=== PATIENT | female | born 1945 | race Caucasian/White ===

== ENCOUNTER 2018-07-05 11:00 | Inpatient (IN) | payer OTHER ==
[~2018-07-05] VITALS: Ht 152.4 cm; Wt 66.7 kg
[~2018-07-05 11:00] MED LIST: ATOR40TA21 PO; FERR325C PO; GLIP10TA14 PO; HYDR25TA6 PO; LISI40TA3 PO; METF100010 PO
[2018-07-26] VITALS (23 sets, daily range): BP systolic 71–139; BP diastolic 39–73; PULSE 62–91; RESP 16–20; Ht 152.4 cm; Wt 66.7 kg
[2018-07-26] MEDS ORDERED: SEVOFLURANE 15 MIN ONE (07:00)
[2018-07-26] MEDS ORDERED: PHENYLephrine (100 MCG/ML) 10ML SYG ONE (07:00)
[2018-07-26] MEDS ORDERED: METF100010 PO (08:31)
[2018-07-26] MEDS ORDERED: GLIP10TA14 PO (08:31)
[2018-07-26] MEDS ORDERED: LISI40TA3 PO (08:32)
[2018-07-26] MEDS ORDERED: HYDR25TA6 PO (08:32)
[2018-07-26] MEDS ORDERED: ATOR40TA68 PO (08:32)
[2018-07-26] MEDS ORDERED: DULO60CA6 PO (08:33)
[2018-07-26] MEDS ORDERED: GABA300C16 PO (08:33)
[2018-07-26] MEDS ORDERED: SITA100T11 PO (08:34)
--- NOTE | 2018-07-26 11:06 | HPN ---
Date/Time of Note Date/Time of Note DATE: 07/26/18 TIME: 11:06 Interval H&P Admission Note Pt. seen H&P reviewed: No system changes RIVAS CUNNINGHAM MD July 26, 2018 11:06
[2018-07-26] MEDS ORDERED: THROMBIN 5000 UNIT VIAL ONE (11:08)
[2018-07-26] MEDS ORDERED: POLYMYXIN/BACITRACIN 1L IRRIG ONE ×2 (11:08→11:34)
[2018-07-26] MEDS ORDERED: GELATIN SIZE 100 SPONGE ONE (11:08)
[2018-07-26] MEDS ORDERED: BUPIVACAINE 0.25%/EPI (SDV) 30 ML INJ ONE (11:08)
--- NOTE | 2018-07-26 11:34 | PREAC ---
Date/Time of Note Date/Time of Note DATE: 07/26/18 TIME: 11:32 Anesthesia Eval and Record Evaluation Time Pre-Procedure Interview DATE: 07/26/18 TIME: 11:32 Age 73 Sex female NPO: 8 hrs Preoperative diagnosis L3/4, L4/5 LUMBAR DISC DISEASE Planned procedure L3/4, L4/5 Past Medical History Past Medical History: None Cardio: HTN, Dyslipidemia Endo: Hypothyroid Surgery & Anesthesia Issues No known issue Meds Anticoagulation: No Beta Jt within 24 hr: No Reason Beta Jt not given: Pt. not on B-Jt Reported Medications Sitagliptin* (Januvia*) 100 Mg Tablet, 100 MG PO DAILY, #30 TAB 07/26/18 Gabapentin* (Gabapentin*) 300 Mg Capsule, 300 MG PO QHS PRN for PAIN, #60 CAP 07/26/18 Duloxetine Hcl* (Cymbalta*) 60 Mg Capsule.dr, 60 MG PO DAILY, CAP 07/26/18 Hydrochlorothiazide* (Hydrochlorothiazide*) 25 Mg Tab, 25 MG PO DAILY, #30 TAB 07/26/18 Atorvastatin* (Atorvastatin*) 40 Mg Tablet, 40 MG PO QHS, #30 TAB 07/26/18 Lisinopril* (Lisinopril*) 40 Mg Tablet, 40 MG PO DAILY, #30 TAB 07/26/18 Metformin Hcl* (Metformin Hcl*) 1,000 Mg Tablet, 1000 MG PO WITH BREAKFAST DINNE, #60 TAB 07/26/18 Glipizide* (Glipizide*) 10 Mg Tablet, 10 MG PO BID, TAB 07/26/18 Discontinued Reported Medications Ferrous Sulfate (Iron) 325 Mg Capsr, PO DAILY 07/01/12 Hydrochlorothiazide (Hydrochlorothiazide) 25 Mg Tablet, PO DAILY 07/01/12 Atorvastatin (Lipitor) 40 Mg Tablet, PO DAILY 07/01/12 Lisinopril* (Lisinopril*) 40 Mg Tablet, PO DAILY 07/01/12 Metformin Hcl* (Metformin Hcl*) 1,000 Mg Tablet, PO BID 07/01/12 Glipizide* (Glipizide*) 10 Mg Tablet, PO BID 07/01/12 Meds reviewed: Yes Allergies Coded Allergies: No Known Allergy (Unverified , 07/26/18) Allergies Reviewed: Yes Labs/Studies Labs Reviewed: Reviewed by anesthesiologist Blood Bank Test 07/26/18 09:03 Antibody Screen NEGATIVE Blood Type A POSITIVE test: N/A Pre-procedure Exam Last vitals Vital Signs Date Temp Pulse Resp B/P (MAP) Pulse Ox O2 O2 Flow FiO2 Time Delivery Rate 07/26/18 97.3 80 16 139/68 96 Room Air 09:15 (91) Airway: Adequate mouth opening Mallampati: Mallampati III Teeth: Normal Lung: Normal Heart: Normal ASA Physical Status ASA physical status: 3 Emergency: None Planned Anesthetic General/MAC: ETT Pre-operative Attestations Prior to commencing anesthesia and surgery, the patient was re-evaluated, there was verification of: *The patient's identity *The results of appropriate recent lab work and preoperative vital signs *The above evaluation not changing prior to induction *Anesthetic plan, risk benefits, alternative and complications discussed with patient/family; questions answered; patient/family understands, accepts and wishes to proceed. CHON SANDOVAL MD July 26, 2018 11:34
[2018-07-26] MEDS ORDERED: PROPOFOL 100 ML ONE (11:54)
[2018-07-26] MEDS ORDERED: LIDOCAINE 100 MG SYRINGE ONE (11:54)
[2018-07-26] MEDS ORDERED: PROPOFOL 20 ML ONE (11:54)
[2018-07-26] MEDS ORDERED: CEFAZOLIN 1 GM INJ ONE (11:54)
[2018-07-26] MEDS ORDERED: MIDAZOLAM 1 MG/ML 2 ML INJ ONE ×2 (11:55→14:21)
[2018-07-26] MEDS ORDERED: ROCURONIUM 50 MG INJ ONE (12:37)
[2018-07-26] MEDS ORDERED: SUCCINYLCHOLINE CHLORIDE 100 MG/5 ML SYG IV ONE (12:37)
[2018-07-26] MEDS ORDERED: DEXAMETHASONE 4 MG/ML 5 ML INJ ONE (12:37)
[2018-07-26] MEDS ORDERED: ONDANSETRON 4 MG INJ ONE (12:37)
[2018-07-26] MEDS ORDERED: HEMOSTATIC MATRIX/ THROMBIN 1 EA SYG ZFS ONE ×2 (12:43)
[2018-07-26] MEDS ORDERED: KETOROLAC 15 MG INJ IV PRN (13:00)
[2018-07-26] MEDS ORDERED: MEPERIDINE 25 MG INJ IV PRN (13:00)
[2018-07-26] MEDS ORDERED: LABETALOL HCL 20MG INJ IV PRN (13:00)
[2018-07-26] MEDS ORDERED: ONDANSETRON 4 MG INJ IV PRN ×2 (13:00→15:30)
[2018-07-26] MEDS ORDERED: HYDROmorphONE 1 MG/5 ML IV SYRINGE IV PRN ×3 (13:00)
[2018-07-26] MEDS ORDERED: hydrALAzine 20 MG INJ IV PRN (13:00)
[2018-07-26] MEDS ORDERED: DIPHENHYDRAMINE 50 MG INJ IV PRN (13:00)
--- NOTE | 2018-07-26 15:14 | OPR ---
Date/Time of Note Date/Time of Note DATE: 07/26/18 TIME: 15:08 Operative Report Free Text/Dictation DATE OF OPERATION: 07/26/2018 PREOPERATIVE DIAGNOSES: 1. L4-5 severe spinal stenosis with neurogenic claudication 2. L3-4 severe spinal stenosis with neurogenic claudication 3. 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 L4-5 severe spinal stenosis with neurogenic claudication 2. L3-4 severe spinal stenosis with neurogenic claudication 3. 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 L4-5 bilateral laminectomy, medial facetectomy, and foraminotomy 2. L3-4 bilateral laminectomy, medial facetectomy, and foraminotomy 3. L3-4 microdiskectomy 4. Interpretation of neuromonitoring SURGEON: Rivas Cunningham MD BRIM STITCHER: SANTIAGO Spaulding ANESTHESIA: General endotracheal ESTIMATED BLOOD LOSS: 200 mL SURGICAL INDICATION: The patient is a 73 year-old female who presents with a chronic increasing of bilateral extremity pain and numbness that is worst with ambulation. The patient was unable to ambulate significant distances secondary to their pain. Ossian's symptoms failed to improve with a conservative course of treatment. . Risks, benefits, and alternatives to a decompressive procedure including but not exclusive of risks of bleeding, infection, nerve injury, cauda equina syndrome, iatrogenic instability requiring future fusion, dural tear, myocardial infarction, stroke, pulmonary embolism were explained to the patient, and she wished to proceed. DESCRIPTION OF TECHNIQUE: The patient was identified in the preoperative area and taken to the operating room. Rapid induction of general endotracheal anesthesia was performed. Patient was given 2 g of cefazolin for prophylaxis. The patient was then placed in the prone position on the Azam table on top of a Nasir frame with all bony prominences well padded. The back was prepped and draped in usual sterile manner. Using a spinal needle and intraoperative fluoroscopy, the L4-5 level was clearly identified. The skin was injected using 0.25% marcaine with epinephrine. Longitudinal midline incision was then created using a 10 blade. Further dissection through soft tissue was performed using electrocautery down to the spinous processes bilaterally. Dissection was taken down the bilateral lamina and over the facet joint capsule. A self-retaining retractor was applied. Again, intraoperative fluoroscopy confirmed the level. A rongeur was used to remove a portion of the L4 spinous process and the interspinous ligaments. We identified the interlaminar window. The microscope was brought into use for microdissection. The high-speed bur was used to thin the L4 lamina. Kerrison rongeurs were then used to resect a the lamina, and a portion of the medial facet and the bone overlying the foramen. Ligamentum flavum was also resected using the Kerrison rongeurs. Care was taken to protect the thecal sac throughout the decompressive procedure. Palpation with a ball-tip probe did not reveal any further stenosis in the central, subarticular, or foraminal areas. The bilateral L5 and L4 pedicles were palpated using a joe to ensure a pedicle to pedicle decompression. The exiting L4 nerve root and traversing L5 nerve roots were both directly visualized and noted to be decompressed. The cephalad and caudad extent of the decompression were als o confirmed using ball-tip probes and intraoperative fluoroscopy. We then focused on the L3-4 level. The L3-4 level was clearly identified using fluoroscopy. The skin was injected using 0.25% marcaine with epinephrine. Longitudinal midline incision was extended proximally using a 10 blade. Further dissection through soft tissue was performed using electrocautery down to the spinous processes bilaterally. Dissection was taken down the bilateral lamina and over the facet joint capsule. A self-retaining retractor was applied. Again, intraoperative fluoroscopy confirmed the level. A rongeur was used to remove a portion of the L3 spinous process and the interspinous ligaments. We identified the interlaminar window. The microscope was brought into use for microdissection. The high-speed bur was used to thin the L3 lamina. Kerrison rongeurs were then used to resect a the lamina, and a portion of the medial facet and the bone overlying the foramen. Ligamentum flavum was also resected using the Kerrison rongeurs. Care was taken to protect the thecal sac throughout the decompressive procedure. The dural was then retracted medially from the left. The extruded central fragment was noted. An annulotomy was performed using a 15 blade. The extruded fragment was removed using a series or nerve hooks, pituitaries and currettes. The disk was taken down to a stable base. No further disk fragments were noted. Palpation with a ball-tip probe did not reveal any further stenosis in the central, subarticular, or foraminal areas. The bilateral L3 and L4 pedicles were palpated using a joe to ensure a pedicle to pedicle decompression. The exiting L3 nerve root and traversing L4 nerve roots were both directly visualized and noted to be decompressed. The cephalad and caudad extent of the decompression were also confirmed using ball-tip probes and intraoperative fluoroscopy. The wound was irrigated copiously using normal saline. Meticulous attention was paid toward hemostasis using bipolar cautery, FloSeal and thrombin. Care was taken to remove all FloSeal prior to wound closure. The fascia was then closed using 0 Vicryl in interrupted fashion over a medium hemovac. Subcutaneous tissue was closed using 2-0 Vicryl in interrupted fashion. Skin was closed using a running 4-0 Monocryl stitch. The wound was dressed using Dermabond, sterile gauze and Tegaderm. The patient was returned to the supine position. They were extubated immediately postoperatively and taken to the recovery room in stable condition. COMPLICATIONS: None. Procedure Date: July 26, 2018 Preoperative Diagnosis 1. L4-5 severe spinal stenosis with neurogenic claudication 2. L3-4 severe spinal stenosis with neurogenic claudication 3. 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 L4-5 severe spinal stenosis with neurogenic claudication 2. L3-4 severe spinal stenosis with neurogenic claudication 3. 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 L4-5 bilateral laminectomy, medial facetectomy, and foraminotomy 2. L3-4 bilateral laminectomy, medial facetectomy, and foraminotomy 3. L3-4 microdiskectomy 4. Interpretation of neuromonitoring Surgeon see signature line Data Sme SANTIAGO Spaulding Anesthesia Type: general Estimated Blood Loss: 150 - 200 ml's Transfusion none Specimen L3-4 disk Grafts/Implants none Complications none Pt Condition Post Procedure: stable Disposition: PACU Procedure Description DESCRIPTION OF TECHNIQUE: The patient was identified in the preoperative area and taken to the operating room. Rapid induction of general endotracheal anesthesia was performed. Patient was given 2 g of cefazolin for prophylaxis. The patient was then placed in the prone position on the Azam table on top of a Nasir frame with all bony prominences well padded. The back was prepped and draped in usual sterile manner. Using a spinal needle and intraoperative fluoroscopy, the L4-5 level was clearly identified. The skin was injected using 0.25% marcaine with epinephrine. Longitudinal midline incision was then created using a 10 blade. Further dissection through soft tissue was performed using electrocautery down to the spinous processes bilaterally. Dissection was taken down the bilateral lamina and over the facet joint capsule. A self-retaining retractor was applied. Again, intraoperative fluoroscopy confirmed the level. A rongeur was used to remove a portion of the L4 spinous process and the interspinous ligaments. We identified the interlaminar window. The microscope was brought into use for microdissection. The high-speed bur was used to thin the L4 lamina. Kerrison rongeurs were then used to resect a the lamina, and a portion of the medial facet and the bone overlying the foramen. Ligamentum flavum was also resected using the Kerrison rongeurs. Care was taken to protect the thecal sac throughout the decompressive procedure. Palpation with a ball-tip probe did not reveal any further stenosis in the central, subarticular, or foraminal areas. The bilateral L5 and L4 pedicles were palpated using a joe to ensure a pedicle to pedicle decompression. The exiting L4 nerve root and traversing L5 nerve roots were both directly visualized and noted to be decompressed. The cephalad and caudad extent of the decompression were also confirmed using ball-tip probes and intraoperative fluoroscopy. We then focused on the L3-4 level. The L3-4 level was clearly identified using fluoroscopy. The skin was injected using 0.25% marcaine with epinephrine. Longitudinal midline incision was extended proximally using a 10 blade. Further dissection through soft tissue was performed using electrocautery down to the s pinous processes bilaterally. Dissection was taken down the bilateral lamina and over the facet joint capsule. A self-retaining retractor was applied. Again, intraoperative fluoroscopy confirmed the level. A rongeur was used to remove a portion of the L3 spinous process and the interspinous ligaments. We identified the interlaminar window. The microscope was brought into use for microdissection. The high-speed bur was used to thin the L3 lamina. Kerrison rongeurs were then used to resect a the lamina, and a portion of the medial facet and the bone overlying the foramen. Ligamentum flavum was also resected using the Kerrison rongeurs. Care was taken to protect the thecal sac throughout the decompressive procedure. The dural was then retracted medially from the left. The extruded central fragment was noted. An annulotomy was performed using a 15 blade. The extruded fragment was removed using a series or nerve hooks, pituitaries and currettes. The disk was taken down to a stable base. No further disk fragments were noted. Palpation with a ball-tip probe did not reveal any further stenosis in the central, subarticular, or foraminal areas. The bilateral L3 and L4 pedicles were palpated using a joe to ensure a pedicle to pedicle decompression. The exiting L3 nerve root and traversing L4 nerve roots were both directly visualized and noted to be decompressed. The cephalad and caudad extent of the decompression were also confirmed using ball-tip probes and intraoperative fluoroscopy. The wound was irrigated copiously using normal saline. Meticulous attention was paid toward hemostasis using bipolar cautery, FloSeal and thrombin. Care was t aken to remove all FloSeal prior to wound closure. The fascia was then closed using 0 Vicryl in interrupted fashion over a medium hemovac. Subcutaneous tissue was closed using 2-0 Vicryl in interrupted fashion. Skin was closed using a running 4-0 Monocryl stitch. The wound was dressed using Dermabond, sterile gauze and Tegaderm. The patient was returned to the supine position. They were extubated immediately postoperatively and taken to the recovery room in stable condition. COMPLICATIONS: None. RIVAS CUNNINGHAM MD July 26, 2018 15:14
[2018-07-26] MEDS ORDERED: EPHEDrine 25 MG/5 ML SYG ONE (15:30)
[2018-07-26] MEDS ORDERED: AL HYDROX/MG HYDROX/SIMETH 30 ML CUP PO PRN (15:30)
[2018-07-26] MEDS ORDERED: ACETAMINOPHEN 325 MG TAB PO PRN (15:30)
[2018-07-26] MEDS ORDERED: NACL 0.9% 3 ML SYG IV SCH (15:30)
[2018-07-26] MEDS ORDERED: HYDROmorphONE 0.2 MG/ML PCA IV SCH (15:30)
[2018-07-26] MEDS ORDERED: NALOXONE (0.4 MG/ML) INJ IV PRN (15:30)
[2018-07-26] MEDS ORDERED: PROCHLORPERAZINE 10 MG TAB PO PRN (15:30)
[2018-07-26] MEDS: EPHEDrine 25 MG/5 ML SYG IV PRN ×2 (15:42→16:27)
--- NOTE | 2018-07-26 15:47 | PAC ---
Date/Time of Note Date/Time of Note DATE: 07/26/18 TIME: 15:47 Post-Anesthesia Notes Post-Anesthesia Note Last documented vital signs Vital Signs Date Temp Pulse Resp B/P (MAP) Pulse Ox O2 O2 Flow FiO2 Time Delivery Rate 07/26/18 98.5 15:28 07/26/18 80 16 139/68 96 Room Air 09:15 (91) Activity: WNL Respiratory function: WNL Cardiovascular function: WNL Mental status: Baseline Pain reasonably controlled: Yes Hydration appropriate: Yes Nausea/Vomiting absent: Yes CHON SANDOVAL MD July 26, 2018 15:47
[2018-07-26] MEDS ORDERED: ALBUMIN HUMAN 5% 250 ML ONE (16:21)
[2018-07-26] MEDS ORDERED: ALBUMIN HUMAN 5% 250 ML IV STA (16:25)
[2018-07-26] MEDS ORDERED: HYDROmorphONE 0.5 MG/0.5 ML SYG IV PRN (16:30)
[2018-07-26] MEDS: HYDROCODONE/APAP (5/325) TAB PO PRN (16:37)
[2018-07-26] MEDS ORDERED: GABAPENTIN 300 MG CAP PO PRN (17:00)
[2018-07-26] MEDS: SOD CHLORIDE 0.9% 1,000 ML IV SCH ×2 (17:00→21:03)
--- NOTE | 2018-07-26 17:09 | CONS ---
DATE OF ADMISSION: 07/26/2018 DATE OF CONSULTATION: 07/26/2018 TYPE OF CONSULTATION: Postoperative medical. Thank you very much for allowing me to evaluate the above patient, a 73-year-old female who just unde rwent lumbar back surgery. HISTORICAL EVENTS: As you are well aware, the above patient was evaluated in your office on 05/04/19 19 when she presented with a 6 to 7-month history of low back pain and related right lower extremity pain. Anti-inflammatories provided no significant relief and it was felt that surgical intervention beneficial. After transferred from the surgical suite to recovery, her blood pressure was noted to b e 70. She was given saline bolus and plasma with her pressure now hovering at 98 systolic. She annette es any substernal chest pressure, cough, wheezing, nausea, vomiting, abdominal pain. Has moderate ba ck pain. PAST MEDICAL HISTORY: Includes: 1. Diabetes. 2. History of hypertension. 3. History of brain surgery. 4. History of depression. 5. Macular degeneration. 6. History of benign positional vertigo. 7. History of hypothyroid. FAMILY HISTORY: Noncontributory. SOCIAL HISTORY: She does not drink. She does not smoke. ALLERGIES: NONE. MEDICATIONS PRIOR TO ADMISSION: Include: 1. Amlodipine 10 mg per day. 2. Atorvastatin 40 mg per day. 3. Cymbalta 60 mg per day. 4. Glipizide 10 mg per day. 5. Hydrochlorothiazide 25 mg per day. 6. Januvia 100 mg per day. 7. Lisinopril 40 mg per day. 8. Metformin 1000 mg b.i.d. 9. Neurontin 300 mg at night. 10. Wellbutrin 300 mg daily. PHYSICAL EXAMINATION: VITAL SIGNS: BP 102/76, pulse 80, respirations were 18. She was afebrile. HEENT: Eyes: Extraocular muscles were full. Nose, mouth and throat were normal. NECK: Supple. There was no jugular venous distention, thyroid enlargement or adenopathy. LUNGS: Clear. HEART: Rhythm regular. No murmur. No third or fourth sound. ABDOMEN: Nontender. Liver and spleen were not palpable. No mass or tenderness were noted. EXTREMITIES: No edema, no calf tenderness. NEUROLOGIC: No lateralizing motor weakness. IMPRESSION: 1. Perioperative hypotension probably secondary to pain meds and extracellular fluid losses, now imp roving with volume repletion. 2. History of hypertension. We will hold blood pressure meds for now. 3. Diabetes. We will resume oral diabetic meds and cover sugars with short-acting insulin before me als. 4. We will follow daily for signs and symptoms of thromboembolic disease. Dictated By: JANNIE GRAY MD MR/NTS Conf#: [id number] DID#: [id number] CC: RIVAS CUNNINGHAM MD;*EndCC*
[2018-07-26] MEDS ORDERED: GLUCAGON 1 MG INJ IM PRN (17:30)
[2018-07-26] MEDS: INSULIN ASPART [NOVOLOG] 3 ML PEN SC SCH (17:30)
[2018-07-26] MEDS ORDERED: GLUCOSE GEL 15 GRAM TUBE PO PRN ×2 (17:30)
[2018-07-26] MEDS: CEFAZOLIN 1 GM/50 ML (PMX) 50 ML IVPB SCH (17:30)
[2018-07-26] MEDS ORDERED: DEXTROSE 50% 50 ML SYRINGE IV PRN ×2 (17:30)
[2018-07-26] MEDS ORDERED: GLUCOSE GEL 15 GRAM TUBE BUCCAL PRN (17:30)
[2018-07-26] MEDS: metFORMIN 500 MG TAB PO SCH (17:55)
[2018-07-26] MEDS: ATORVASTATIN 40 MG TAB PO SCH (21:03)
[2018-07-27 00:25] VITALS: BP 113/59; PULSE 88; RESP 18
[2018-07-27] MEDS: CEFAZOLIN 1 GM/50 ML (PMX) 50 ML IVPB SCH ×3 (00:35→14:03)
[2018-07-27] MEDS: ACCU-CHEK XX SCH (01:52)
[2018-07-27 04:00] VITALS: BP 117/66; PULSE 76; RESP 18
[2018-07-27] MEDS: INSULIN ASPART [NOVOLOG] 3 ML PEN SC SCH ×3 (07:20→17:47)
[2018-07-27 08:11] VITALS: BP 116/55; RESP 18
[2018-07-27] MEDS: HYDROCODONE/APAP (5/325) TAB PO PRN ×4 (08:13→22:06)
[2018-07-27] MEDS: SOD CHLORIDE 0.9% 1,000 ML IV SCH (08:14)
--- NOTE | 2018-07-27 08:38 | CONS ---
Assessment/Plan Assessment/Plan Assessment/Plan (Daily) 1. Doing well psot op lumbar back surgery 2. Anemia, noted 3. CHO control acceptable 4. BP controlled, hypotension resolved with vol expansion Consultation Date/Type/Reason Admit Date/Time July 26, 2018 at 07:44 Initial Consult Date Date/Time of Note DATE: 07/27/18 TIME: 08:36 Detailed Summary Respiratory: No cough, No shortness of breath Cardiovascular: No chest pain, No palpitations Gastrointestinal: no complaints Genitourinary: other (lin in place) Musculoskeletal: back pain (moderate) Neurologic: No headache Exam/Review of Systems Exam Vitals Vital Signs Date Temp Pulse Resp B/P (MAP) Pulse Ox O2 O2 Flow FiO2 Time Delivery Rate 07/27/18 98.3 18 116/55 100 Nasal 08:11 (75) Cannula 07/27/18 76 04:00 07/26/18 2.0 20:15 Intake and Output 07/26/18 07/26/18 07/27/18 1515:00 23:00 07:00 IntakeIntake Total 1300 ml 50 ml 800 ml OutputOutput Total 400 ml 200 ml 110 ml BalanceBalance 900 ml -150 ml 690 ml Neck: No jvd Respiratory: clear to auscultation Cardiovascular: regular rate and rhythm Gastrointestinal: soft Extremities: No edema, No tenderness Results Result Diagram: 07/27/18 0434 07/27/18 0434 Results 24hrs Laboratory Tests Test 07/26/18 09:10 07/26/18 16:48 07/26/18 18:21 07/26/18 20:36 Bedside Glucose 126 186 Hemoglobin 10.1 L 9.3 L Hematocrit 31.6 L 28.7 L White Blood Count 12.0 H Red Blood Count 3.47 L Mean Corpuscular 82.7 Volume Mean Corpuscular 26.8 L Hemoglobin Mean Corpuscular 32.4 Hemoglobin Concent Red Cell 12.8 Distribution Width Platelet Count 206 Mean Platelet 10.5 H Volume Immature 0.300 Granulocytes % Neutrophils % 92.6 H Lymphocytes % 4.6 L Monocytes % 2.4 Eosinophils % 0.0 Basophils % 0.1 Nucleated Red 0.0 Blood Cells % Immature 0.040 H Granulocytes # Neutrophils # 11.2 H Lymphocytes # 0.6 L Monocytes # 0.3 Eosinophils # 0.0 Basophils # 0.0 Nucleated Red 0.0 Blood Cells # Test 07/27/18 04:34 07/27/18 08:21 07/27/18 08:23 Hemoglobin 8.9 L Hematocrit 27.5 L Sodium Level 138 Potassium Level 4.1 Chloride Level 103 Carbon Dioxide 27 Level Anion Gap 8 Blood Urea 17 Nitrogen Creatinine 0.74 Est Glomerular Filtrat Rate mL/min Glucose Level 141 Calcium Level 8.7 Phosphorus Level 5.4 H Magnesium Level 1.4 L Bedside Glucose 125 Lab Scanned Report REFERENCE LAB Medications Medication Current Medications Acetaminophen/ Hydrocodone Bitart ([place] (5/325)) 1 tab Q4H PRN PO .PAIN 1-5 Last administered on 07/27/18at 08:13; Admin Dose 1 TAB; Start 07/26/18 at 15:30 Acetaminophen/ Hydrocodone Bitart ([place] (5/325)) 2 tab Q4H PRN PO .PAIN 6-10 Last administered on 07/26/18at 16:37; Admin Dose 2 TAB; Start 07/26/18 at 15:30 Cefazolin Sodium 50 ml @ 100 mls/hr Q6 IVPB Last administered on 07/27/18at 05:41; Admin Dose 100 MLS/HR; Start 07/26/18 at 18:00; Stop 07/27/18 at 12:29 Prochlorperazine (Compazine) 10 mg Q4H PRN PO NAUSEA/VOMITING; Start 07/26/18 at 15:30 Ondansetron HCl (Zofran Inj) 4 mg Q6H PRN IV NAUSEA/VOMITING; Start 07/26/18 at 15:30 Al Hydrox/Mg Hydrox/Simethicone (Mag-Al Plus) 15 ml Q4H PRN PO .CONSTIPATION; Start 07/26/18 at 15:30 Docusate Sodium (Colace) 100 mg BID PO ; Start 07/27/18 at 09:00 Acetaminophen (Tylenol Tab) 650 mg Q4H PRN PO TEMP GREATER THAN 101F OR AGOSTO; Start 07/26/18 at 15:30 IV Flush (NS 3 ml) 3 ml PER PROTOCOL IV ; Start 07/26/18 at 15:30 Naloxone HCl (Narcan) 0.2 mg Q2M PRN IV RR 8 BREATHS/MIN OR LESS; Start 07/26/18 at 15:30 Hydromorphone HCl (Dilaudid) 0.5 mg Q4H PRN IV SEVERE PAIN LEVEL 7-10; Start 07/26/18 at 16:30 Sodium Chloride 1,000 ml @ 100 mls/hr Q10H IV Last administered on 07/27/18at 08:14; Admin Dose 100 MLS/HR; Start 07/26/18 at 17:00 Atorvastatin Calcium (Lipitor) 40 mg QHS PO Last administered on 07/26/18at 21:03; Admin Dose 40 MG; Start 07/26/18 at 21:00 Duloxetine HCl (Cymbalta) 60 mg DAILY PO ; Start 07/27/18 at 09:00 Gabapentin (Neurontin) 300 mg QHS PRN PO PAIN; Start 07/26/18 at 17:00 Lisinopril (Zestril) 40 mg DAILY PO ; Start 07/27/18 at 09:00 Metformin HCl (Glucophage) 1,000 mg WITH BREAKFAST DINNE PO ; Start 07/26/18 at 17:55 Linagliptin (Tradjenta) 5 mg DAILY PO ; Start 07/27/18 at 09:00 Diagnostic Test (Pha) (Accu-Chek) 1 ea 02 XX ; Start 07/27/18 at 02:00 Insulin Aspart (Novolog Insulin Pen) NOVOLOG *MILD* ALGORITHM AC MEALS SC ; Start 07/26/18 at 17:30 Miscellaneous Information 1 ea NOTE XX ; Start 07/26/18 at 17:30 Glucose (Glutose) 15 gm Q15M PRN PO DECREASED GLUCOSE; Start 07/26/18 at 17:30 Glucose (Glutose) 22.5 gm Q15M PRN PO DECREASED GLUCOSE; Start 07/26/18 at 17:30 Dextrose (D50w Syringe) 25 ml Q15M PRN IV DECREASED GLUCOSE; Start 07/26/18 at 17:30 Dextrose (D50w Syringe) 50 ml Q15M PRN IV DECREASED GLUCOSE; Start 07/26/18 at 17:30 Glucagon (Glucagen) 1 mg Q15M PRN IM DECREASED GLUCOSE; Start 07/26/18 at 17:30 Glucose (Glutose) 15 gm Q15M PRN BUCCAL DECREASED GLUCOSE; Start 07/26/18 at 17:30 JANNIE GRAY MD July 27, 2018 08:38
[2018-07-27] MEDS: LINAGLIPTIN 5 MG TABLET PO SCH (09:20)
[2018-07-27] MEDS: DOCUSATE SODIUM 100 MG CAP PO SCH ×2 (09:20→20:56)
[2018-07-27] MEDS: DULOXETINE 30 MG CAP DR PO SCH (09:20)
[2018-07-27] MEDS: LISINOPRIL 20 MG TAB PO SCH (09:21)
[2018-07-27] MEDS: metFORMIN 500 MG TAB PO SCH ×2 (09:25→17:44)
[2018-07-27] MEDS ORDERED: MAGNESIUM SULFATE 3 GM in DEXTROSE 5% 100 ML IVPB ONE (10:00)
--- NOTE | 2018-07-27 12:58 | CONS ---
Consultation Date/Type/Reason Admit Date/Time July 26, 2018 at 07:44 Initial Consult Date Date/Time of Note DATE: 07/27/18 TIME: 12:55 24 HR Interval Summary Free Text/Dictation S: 73 yo F POD#1 s/p L3-L5 decompression. No acute events over night. Pain controlled w/ PO Fiatt. Working well w/ PT. Lg pain improved. Drain output 150 mL. O: Vital Signs Date Temp Pulse Resp B/P (MAP) Pulse Ox O2 O2 Flow FiO2 Time Delivery Rate 07/27/18 98.3 18 116/55 100 Nasal 08:11 (75) Cannula 07/27/18 76 04:00 07/26/18 2.0 20:15 Gen: AAOx3, NAD Spine: NVI Laboratory Tests Test 07/26/18 16:48 07/26/18 18:21 07/26/18 20:36 07/27/18 04:34 Hemoglobin 10.1 g/dl 9.3 g/dl 8.9 g/dl Hematocrit 31.6 % 28.7 % 27.5 % Bedside Glucose 186 mg/dL White Blood 12.0 10^3/ul Count Red Blood Count 3.47 10^6/ul Mean Corpuscular 82.7 fl Volume Mean Corpuscular 26.8 pg Hemoglobin Mean Corpuscular 32.4 g/dl Hemoglobin Cori nt Red Cell 12.8 % Distribution Width Platelet Count 206 10^3/UL Mean Platelet 10.5 fl Volume Immature 0.300 % Granulocytes % Neutrophils % 92.6 % Lymphocytes % 4.6 % Monocytes % 2.4 % Eosinophils % 0.0 % Basophils % 0.1 % Nucleated Red 0.0 /100WBC Blood Cells % Immature 0.040 10^3/ul Granulocytes # Neutrophils # 11.2 10^3/ul Lymphocytes # 0.6 10^3/ul Monocytes # 0.3 10^3/ul Eosinophils # 0.0 10^3/ul Basophils # 0.0 10^3/ul Nucleated Red 0.0 10^3/ul Blood Cells # Sodium Level 138 mmol/L Potassium Level 4.1 mmol/L Chloride Level 103 mmol/L Carbon Dioxide 27 mmol/L Level Anion Gap 8 Blood Urea 17 mg/dl Nitrogen Creatinine 0.74 mg/dl Est Glomerular mL/min Filtrat Rate mL/min Glucose Level 141 mg/dl Calcium Level 8.7 mg/dl Phosphorus Level 5.4 mg/dl Magnesium Level 1.4 mg/dl Test 07/27/18 08:21 07/27/18 08:23 Bedside Glucose 125 mg/dL Lab Scanned REFERENCE Report LAB [id number] Current Medications Medications Dose Sig/Fuad Start Time Status Last (Trade) Ordered Route PRN Stop Time Admin Dose Reason Admin Gelatin 1 sponge STK-MED 07/26/18 DC 07/26/18 (Gelatin ONCE .ROUTE 11: 12:43 1 Size 100 07/26/18 11:09 SPONGE Sponge) Thrombin 10,000 units STK-MED 07/26/18 DC 07/26/18 (Thrombin) ONCE .ROUTE 11: 12:43 5,000 07/26/18 11:09 UNITS Bupivacaine 30 ml STK-MED 07/26/18 DC 07/26/18 HCl/ ONCE .ROUTE 11: 12:43 10 ML Epinephrine 07/26/18 11:09 Bitart ([place] 0.25%/ Epi (Sdv) 30 ml) Bacitracin/ 1,000 ml STK-MED 07/26/18 DC Polymyxin B ONCE .ROUTE 11:08 Sulfate (Pb 07/26/18 11:09 Solution) Bacitracin/ 1,000 ml STK-MED 07/26/18 DC 07/26/18 Polymyxin B ONCE .ROUTE 11:34 12:43 1,000 Sulfate (Pb 07/26/18 11:35 ML Solution) 0.2 mg PACU PRN 07/26/18 DC Hydromorphone IV MILD PAIN 13:00 HCl 1-3 07/26/18 17:00 (Dilaudid) 0.4 mg PACU PRN 07/26/18 DC Hydromorphone IV MOD PAIN 13:00 HCl 4-6 07/26/18 17:00 (Dilaudid) 0.6 mg PACU PRN 07/26/18 DC Hydromorphone IV SEVERE 13:00 HCl PAIN 7-10 07/26/18 17:00 (Dilaudid) Ketorolac 15 mg PACU ORDER 07/26/18 DC 07/26/18 Tromethamine PRN IV FOR 13:00 16:38 15 MG (Toradol) PAIN AFTER IV 07/26/18 17:00 NARCOTIC MED Ondansetron 4 mg PACU ORDER 07/26/18 DC 07/26/18 HCl (Zofran PRN IV 13:00 16:38 4 MG Inj) NAUSEA/VOMITI 07/26/18 17:00 NG Labetalol 5 mg PACU ORDER 07/26/18 DC HCl PRN IV HIGH 13:00 (Labetalol) BLOOD 07/26/18 17:00 PRESSURE Hydralazine 5 mg PACU ORDER 07/26/18 DC HCl PRN IV HIGH 13:00 (Apresoline) BLOOD 07/26/18 17:00 PRESSURE Meperidine 25 mg PACU ORDER 07/26/18 DC HCl PRN IV 13:00 (Demerol) .RIGORS 07/26/18 17:00 25 mg PACU ORDER 07/26/18 DC Diphenhydrami PRN IV 13:00 ne HCl .PRURITUS 07/26/18 17:00 (Benadryl) 1 ea STK-MED 07/26/18 Cancel Microfibrille ONCE ZFS 12:43 r Collagen 07/26/18 12:44 Hemostat (Surgiflo/ Thrombin Combo) 2 ea STK-MED 07/26/18 DC 07/26/18 Microfibrille ONCE ZFS 12:43 12:43 2 EA r Collagen 07/26/18 13:44 Hemostat (Surgiflo/ Thrombin Combo) 1 tab Q4H PRN 07/26/18 07/27/18 Acetaminophen PO .PAIN 1-5 15:30 08:13 1 TAB / Hydrocodone Bitart ([place] (5/325)) 2 tab Q4H PRN 07/26/18 07/26/18 Acetaminophen PO .PAIN 15:30 16:37 2 TAB / 6-10 Hydrocodone Bitart ([place] (5/325)) Cefazolin 50 ml @ Q6 IVPB 07/26/18 DC 07/27/18 Sodium 100 mls/hr 18:00 05:41 100 07/27/18 12:29 MLS/HR 10 mg Q4H PRN 07/26/18 Prochlorperaz PO 15:30 ine NAUSEA/VOMITI (Compazine) NG Ondansetron 4 mg Q6H PRN 07/26/18 HCl (Zofran IV 15:30 Inj) NAUSEA/VOMITI NG Al 15 ml Q4H PRN 07/26/18 Hydrox/Mg PO 15:30 Hydrox/Simeth .CONSTIPATION icone (Mag-Al Plus) Docusate 100 mg BID PO 07/27/18 07/27/18 Sodium 09:00 09:20 100 MG (Colace) 650 mg Q4H PRN 07/26/18 Acetaminophen PO TEMP 15:30 (Tylenol GREATER THAN Tab) 101F OR AGOSTO IV Flush 3 ml PER 07/26/18 (NS 3 ml) PROTOCOL IV 15:30 Q4PCA IV 07/26/18 DC Hydromorphone 15:30 HCl 07/26/18 16:08 (Dilaudid [employer]) Naloxone 0.2 mg Q2M PRN 07/26/18 HCl IV RR 8 15:30 (Narcan) BREATHS/MIN OR LESS Ephedrine 25 mg STK-MED 07/26/18 DC Sulfate ONCE .ROUTE 15:30 07/26/18 15:31 Ephedrine 5 mg PACU ORDER 07/26/18 DC 07/26/18 Sulfate PRN IV 16:00 16:27 5 MG BLOOD 07/26/18 20:00 PRESSURE SUPPORT 0.5 mg Q4H PRN 07/26/18 Hydromorphone IV SEVERE 16:30 HCl PAIN LEVEL (Dilaudid) 7-10 Albumin 250 ml @ ud STK-MED 07/26/18 DC Human ONCE .ROUTE 16:21 07/26/18 16:22 Albumin 250 ml @ ONCE STAT 07/26/18 DC 07/26/18 Human 250 mls/hr IV 16:25 16:32 250 07/26/18 17:24 MLS/HR Sodium 1,000 ml @ [id number] IV 07/26/18 07/27/18 Chloride 80 mls/hr 17:00 08:14 100 MLS/HR 40 mg QHS PO 07/26/18 07/26/18 Atorvastatin 21:00 21:03 40 MG Calcium (Lipitor) Duloxetine 60 mg DAILY PO 07/27/18 07/27/18 HCl 09:00 09:20 60 MG (Cymbalta) Gabapentin 300 mg QHS PRN 07/26/18 (Neurontin) PO PAIN 17:00 Lisinopril 40 mg DAILY PO 07/27/18 07/27/18 (Zestril) 09:00 09:21 40 MG Metformin 1,000 mg WITH 07/26/18 07/27/18 HCl BREAKFAST 17:55 09:25 1,000 (Glucophage) DINNE PO MG Linagliptin 5 mg DAILY PO 07/27/18 07/27/18 (Tradjenta) 09:00 09:20 5 MG Discontinue ONCE ONCE 07/26/18 DC Miscellaneous current oral XX 17:00 sulfonylur... 07/26/18 17:05 Information (* Miscellaneous Pharmacy Order) Diagnostic 1 ea 02 XX 07/27/18 Test (Pha) 02:00 (Accu-Chek) ONCE ONCE 07/26/18 DC Miscellaneous HYPOGLYCEMIA XX 17:00 PROTOCOL 07/26/18 17:05 Information w... (* Miscellaneous Pharmacy Order) Insulin NOVOLOG AC MEALS 07/26/18 Aspart *MILD* SC 17:30 (Novolog ALGORITHM Insulin Pen) Discontinue ONCE ONCE 07/26/18 DC Miscellaneous all previ... XX 17:00 07/26/18 17:05 Information (* Miscellaneous Pharmacy Order) 1 ea NOTE XX 07/26/18 Miscellaneous 17:30 Information Glucose 15 gm Q15M PRN 07/26/18 (Glutose) PO DECREASED 17:30 GLUCOSE Glucose 22.5 gm Q15M PRN 07/26/18 (Glutose) PO DECREASED 17:30 GLUCOSE Dextrose 25 ml Q15M PRN 07/26/18 (D50w IV DECREASED 17:30 Syringe) GLUCOSE Dextrose 50 ml Q15M PRN 07/26/18 (D50w IV DECREASED 17:30 Syringe) GLUCOSE Glucagon 1 mg Q15M PRN 07/26/18 (Glucagen) IM DECREASED 17:30 GLUCOSE Glucose 15 gm Q15M PRN 07/26/18 (Glutose) BUCCAL 17:30 DECREASED GLUCOSE Magnesium 106 ml @ ONCE ONCE 07/27/18 07/27/18 Sulfate 3 35.333 mls/ IVPB 10:00 10:58 35.333 gm/Dextrose hr 07/27/18 12:59 MLS/HR A/P: 73 yo F POD#1 s/p L3-L5 decompression. Doing well. 1. OOB w/ PT 2. Continue Drain until Output decrases 3. Follow-up H&H in am 4. Appreciate med recs 5. D/C home Wed or Thurs once drain output decreases and cleared by PT (pt lives alone) Exam/Review of Systems Exam Vitals Vital Signs Date Temp Pulse Resp B/P (MAP) Pulse Ox O2 O2 Flow FiO2 Time Delivery Rate 07/27/18 98.3 18 116/55 100 Nasal 08:11 (75) Cannula 07/27/18 76 04:00 07/26/18 2.0 20:15 Intake and Output 07/26/18 07/26/18 07/27/18 1515:00 23:00 07:00 IntakeIntake Total 1300 ml 50 ml 800 ml OutputOutput Total 400 ml 200 ml 110 ml BalanceBalance 900 ml -150 ml 690 ml Results Result Diagram: 07/27/18 0434 07/27/18 0434 Results 24hrs Laboratory Tests Test 07/26/18 16:48 07/26/18 18:21 07/26/18 20:36 07/27/18 04:34 Hemoglobin 10.1 L 9.3 L 8.9 L Hematocrit 31.6 L 28.7 L 27.5 L Bedside Glucose 186 White Blood Count 12.0 H Red Blood Count 3.47 L Mean Corpuscular 82.7 Volume Mean Corpuscular 26.8 L Hemoglobin Mean Corpuscular 32.4 Hemoglobin Concent Red Cell 12.8 Distribution Width Platelet Count 206 Mean Platelet 10.5 H Volume Immature 0.300 Granulocytes % Neutrophils % 92.6 H Lymphocytes % 4.6 L Monocytes % 2.4 Eosinophils % 0.0 Basophils % 0.1 Nucleated Red 0.0 Blood Cells % Immature 0.040 H Granulocytes # Neutrophils # 11.2 H Lymphocytes # 0.6 L Monocytes # 0.3 Eosinophils # 0.0 Basophils # 0.0 Nucleated Red 0.0 Blood Cells # Sodium Level 138 Potassium Level 4.1 Chloride Level 103 Carbon Dioxide 27 Level Anion Gap 8 Blood Urea 17 Nitrogen Creatinine 0.74 Est Glomerular Filtrat Rate mL/min Glucose Level 141 Calcium Level 8.7 Phosphorus Level 5.4 H Magnesium Level 1.4 L Test 07/27/18 08:21 07/27/18 08:23 Bedside Glucose 125 Lab Scanned Report REFERENCE LAB Medications Medication Current Medications Acetaminophen/ Hydrocodone Bitart ([place] (5/325)) 1 tab Q4H PRN PO .PAIN 1-5 Last administered on 07/27/18at 08:13; Admin Dose 1 TAB; Start 07/26/18 at 15:30 Acetaminophen/ Hydrocodone Bitart ([place] (5/325)) 2 tab Q4H PRN PO .PAIN 6-10 Last administered on 07/26/18at 16:37; Admin Dose 2 TAB; Start 07/26/18 at 15:30 Prochlorperazine (Compazine) 10 mg Q4H PRN PO NAUSEA/VOMITING; Start 07/26/18 at 15:30 Ondansetron HCl (Zofran Inj) 4 mg Q6H PRN IV NAUSEA/VOMITING; Start 07/26/18 at 15:30 Al Hydrox/Mg Hydrox/Simethicone (Mag-Al Plus) 15 ml Q4H PRN PO .CONSTIPATION; Start 07/26/18 at 15:30 Docusate Sodium (Colace) 100 mg BID PO Last administered on 07/27/18at 09:20; Admin Dose 100 MG; Start 07/27/18 at 09:00 Acetaminophen (Tylenol Tab) 650 mg Q4H PRN PO TEMP GREATER THAN 101F OR AGOSTO; Start 07/26/18 at 15:30 IV Flush (NS 3 ml) 3 ml PER PROTOCOL IV ; Start 07/26/18 at 15:30 Naloxone HCl (Narcan) 0.2 mg Q2M PRN IV RR 8 BREATHS/MIN OR LESS; Start 07/26/18 at 15:30 Hydromorphone HCl (Dilaudid) 0.5 mg Q4H PRN IV SEVERE PAIN LEVEL 7-10; Start 07/26/18 at 16:30 Sodium Chloride 1,000 ml @ 80 mls/hr [id number] IV Last administered on 07/27/18at 08:14; Admin Dose 100 MLS/HR; Start 07/26/18 at 17:00 Atorvastatin Calcium (Lipitor) 40 mg QHS PO Last administered on 07/26/18at 21:03; Admin Dose 40 MG; Start 07/26/18 at 21:00 Duloxetine HCl (Cymbalta) 60 mg DAILY PO Last administered on 07/27/18at 09:20; Admin Dose 60 MG; Start 07/27/18 at 09:00 Gabapentin (Neurontin) 300 mg QHS PRN PO PAIN; Start 07/26/18 at 17:00 Lisinopril (Zestril) 40 mg DAILY PO Last administered on 07/27/18at 09:21; Admin Dose 40 MG; Start 07/27/18 at 09:00 Metformin HCl (Glucophage) 1,000 mg WITH BREAKFAST DINNE PO Last administered on 07/27/18at 09:25; Admin Dose 1,000 MG; Start 07/26/18 at 17:55 Linagliptin (Tradjenta) 5 mg DAILY PO Last administered on 07/27/18at 09:20; Admin Dose 5 MG; Start 07/27/18 at 09:00 Diagnostic Test (Pha) (Accu-Chek) 1 ea 02 XX ; Start 07/27/18 at 02:00 Insulin Aspart (Novolog Insulin Pen) NOVOLOG *MILD* ALGORITHM AC MEALS SC ; Start 07/26/18 at 17:30 Miscellaneous Information 1 ea NOTE XX ; Start 07/26/18 at 17:30 Glucose (Glutose) 15 gm Q15M PRN PO DECREASED GLUCOSE; Start 07/26/18 at 17:30 Glucose (Glutose) 22.5 gm Q15M PRN PO DECREASED GLUCOSE; Start 07/26/18 at 17:30 Dextrose (D50w Syringe) 25 ml Q15M PRN IV DECREASED GLUCOSE; Start 07/26/18 at 17:30 Dextrose (D50w Syringe) 50 ml Q15M PRN IV DECREASED GLUCOSE; Start 07/26/18 at 17:30 Glucagon (Glucagen) 1 mg Q15M PRN IM DECREASED GLUCOSE; Start 07/26/18 at 17:30 Glucose (Glutose) 15 gm Q15M PRN BUCCAL DECREASED GLUCOSE; Start 07/26/18 at 17:30 Magnesium Sulfate 3 gm/Dextrose 106 ml @ 35.333 mls/ hr ONCE ONCE IVPB Last administered on 07/27/18at 10:58; Admin Dose 35.333 MLS/HR; Start 07/27/18 at 10:00; Stop 07/27/18 at 12:59 RIVAS CUNNINGHAM MD July 27, 2018 12:58
[2018-07-27 14:00] VITALS: BP 114/58; PULSE 77; RESP 18
[2018-07-27 19:48] VITALS: BP 116/60; PULSE 68; RESP 18
[2018-07-27] MEDS: ATORVASTATIN 40 MG TAB PO SCH (20:56)
[2018-07-28] MEDS: SOD CHLORIDE 0.9% 1,000 ML IV SCH ×2 (01:30→13:17)
[2018-07-28] MEDS: ACCU-CHEK XX SCH (02:00)
[2018-07-28 02:42] VITALS: BP 108/62; PULSE 68; RESP 18
[2018-07-28] MEDS: HYDROCODONE/APAP (5/325) TAB PO PRN ×5 (05:06→22:54)
[2018-07-28] MEDS: INSULIN ASPART [NOVOLOG] 3 ML PEN SC SCH ×3 (07:20→17:25)
--- NOTE | 2018-07-28 08:21 | CONS ---
Assessment/Plan Assessment/Plan Assessment/Plan (Daily) 1. Doing very well post op lumbar back surgery 2. DM, sugar control is acceptable 3. Labs were rev 4. Prob dc lin today Consultation Date/Type/Reason Admit Date/Time July 26, 2018 at 07:44 Initial Consult Date Date/Time of Note DATE: 07/28/18 TIME: 08:20 Detailed Summary Respiratory: shortness of breath Cardiovascular: No chest pain, No lightheadedness Gastrointestinal: no complaints Genitourinary: other (lin in place) Musculoskeletal: back pain (moderate) Exam/Review of Systems Exam Vitals Vital Signs Date Temp Pulse Resp B/P (MAP) Pulse Ox O2 O2 Flow FiO2 Time Delivery Rate 07/28/18 97.8 68 18 108/62 96 Room Air 02:42 (77) 07/26/18 2.0 20:15 Intake and Output 07/27/18 07/27/18 07/28/18 1515:00 23:00 07:00 IntakeIntake Total 156 ml 1800 ml 350 ml OutputOutput Total 700 ml 1705 ml BalanceBalance 156 ml 1100 ml -1355 ml Neck: No jvd Respiratory: clear to auscultation Cardiovascular: regular rate and rhythm Extremities: No calf tenderness, No edema Results Result Diagram: 07/28/18 0507 07/28/18 0507 Results 24hrs Laboratory Tests Test 07/27/18 08:21 07/27/18 08:23 07/27/18 12:57 07/27/18 17:43 Bedside Glucose 125 179 164 Lab Scanned Report REFERENCE LAB Test 07/28/18 05:07 White Blood Count 10.2 Red Blood Count 3.24 L Hemoglobin 8.7 L Hematocrit 27.2 L Mean Corpuscular 84.0 Volume Mean Corpuscular 26.9 L Hemoglobin Mean Corpuscular 32.0 Hemoglobin Concent Red Cell 13.2 Distribution Width Platelet Count 204 Mean Platelet 10.9 H Volume Immature 0.400 Granulocytes % Neutrophils % 71.8 Lymphocytes % 15.9 Monocytes % 11.0 Eosinophils % 0.6 Basophils % 0.3 Nucleated Red 0.0 Blood Cells % Immature 0.040 H Granulocytes # Neutrophils # 7.4 Lymphocytes # 1.6 Monocytes # 1.1 H Eosinophils # 0.1 Basophils # 0.0 Nucleated Red 0.0 Blood Cells # Sodium Level 138 Potassium Level 4.1 Chloride Level 102 Carbon Dioxide 30 Level Anion Gap 6 Blood Urea 12 Nitrogen Creatinine 0.59 Est Glomerular Filtrat Rate mL/min Glucose Level 126 Calcium Level 8.6 Phosphorus Level 2.8 # Magnesium Level 1.7 Iron Level 13 L Total Iron Binding 329 Capacity Percent Iron 4 L Saturation Ferritin 12.3 Medications Medication Current Medications Acetaminophen/ Hydrocodone Bitart ([place] (5/325)) 1 tab Q4H PRN PO .PAIN 1-5 Last administered on 07/27/18at 17:49; Admin Dose 1 TAB; Start 07/26/18 at 15:30 Acetaminophen/ Hydrocodone Bitart ([place] (5/325)) 2 tab Q4H PRN PO .PAIN 6-10 Last administered on 07/28/18at 05:06; Admin Dose 2 TAB; Start 07/26/18 at 15:30 Prochlorperazine (Compazine) 10 mg Q4H PRN PO NAUSEA/VOMITING; Start 07/26/18 at 15:30 Ondansetron HCl (Zofran Inj) 4 mg Q6H PRN IV NAUSEA/VOMITING; Start 07/26/18 at 15:30 Al Hydrox/Mg Hydrox/Simethicone (Mag-Al Plus) 15 ml Q4H PRN PO .CONSTIPATION; Start 07/26/18 at 15:30 Docusate Sodium (Colace) 100 mg BID PO Last administered on 07/27/18at 09:20; Admin Dose 100 MG; Start 07/27/18 at 09:00 Acetaminophen (Tylenol Tab) 650 mg Q4H PRN PO TEMP GREATER THAN 101F OR AGOSTO Last administered on 07/27/18at 14:03; Admin Dose 650 MG; Start 07/26/18 at 15:30 IV Flush (NS 3 ml) 3 ml PER PROTOCOL IV ; Start 07/26/18 at 15:30 Naloxone HCl (Narcan) 0.2 mg Q2M PRN IV RR 8 BREATHS/MIN OR LESS; Start 07/26/18 at 15:30 Hydromorphone HCl (Dilaudid) 0.5 mg Q4H PRN IV SEVERE PAIN LEVEL 7-10; Start 07/26/18 at 16:30 Sodium Chloride 1,000 ml @ 80 mls/hr [id number] IV Last administered on 07/27/18at 08:14; Admin Dose 100 MLS/HR; Start 07/26/18 at 17:00 Atorvastatin Calcium (Lipitor) 40 mg QHS PO Last administered on 07/26/18at 21:03; Admin Dose 40 MG; Start 07/26/18 at 21:00 Duloxetine HCl (Cymbalta) 60 mg DAILY PO Last administered on 07/27/18at 09:20; Admin Dose 60 MG; Start 07/27/18 at 09:00 Gabapentin (Neurontin) 300 mg QHS PRN PO PAIN; Start 07/26/18 at 17:00 Lisinopril (Zestril) 40 mg DAILY PO Last administered on 07/27/18at 09:21; Admin Dose 40 MG; Start 07/27/18 at 09:00 Metformin HCl (Glucophage) 1,000 mg WITH BREAKFAST DINNE PO Last administered on 07/27/18at 17:44; Admin Dose 1,000 MG; Start 07/26/18 at 17:55 Linagliptin (Tradjenta) 5 mg DAILY PO Last administered on 07/27/18at 09:20; Admin Dose 5 MG; Start 07/27/18 at 09:00 Diagnostic Test (Pha) (Accu-Chek) 1 ea 02 XX ; Start 07/27/18 at 02:00 Insulin Aspart (Novolog Insulin Pen) NOVOLOG *MILD* ALGORITHM AC MEALS SC Last administered on 07/27/18at 17:47; Admin Dose 1 UNIT; Start 07/26/18 at 17:30 Miscellaneous Information 1 ea NOTE XX ; Start 07/26/18 at 17:30 Glucose (Glutose) 15 gm Q15M PRN PO DECREASED GLUCOSE; Start 07/26/18 at 17:30 Glucose (Glutose) 22.5 gm Q15M PRN PO DECREASED GLUCOSE; Start 07/26/18 at 17:30 Dextrose (D50w Syringe) 25 ml Q15M PRN IV DECREASED GLUCOSE; Start 07/26/18 at 17:30 Dextrose (D50w Syringe) 50 ml Q15M PRN IV DECREASED GLUCOSE; Start 07/26/18 at 17:30 Glucagon (Glucagen) 1 mg Q15M PRN IM DECREASED GLUCOSE; Start 07/26/18 at 17:30 Glucose (Glutose) 15 gm Q15M PRN BUCCAL DECREASED GLUCOSE; Start 5/20/19 at 17 :30 JANNIE GRAY MD July 28, 2018 08:21
[2018-07-28] MEDS: DOCUSATE SODIUM 100 MG CAP PO SCH ×2 (08:28→20:19)
[2018-07-28] MEDS: DULOXETINE 30 MG CAP DR PO SCH (08:28)
[2018-07-28] MEDS: metFORMIN 500 MG TAB PO SCH ×2 (08:28→18:07)
[2018-07-28] MEDS: LINAGLIPTIN 5 MG TABLET PO SCH (08:29)
[2018-07-28] MEDS: LISINOPRIL 20 MG TAB PO SCH (08:29)
[2018-07-28 08:46] VITALS: BP 130/61; PULSE 91; RESP 18
[2018-07-28] MEDS: SOD FERRIC GLUC COMPLX 125 MG in SOD CHLORIDE 0.9% 100 ML IVPB SCH (12:54)
[2018-07-28 16:13] VITALS: BP 126/62; PULSE 88; RESP 18
--- NOTE | 2018-07-28 16:20 | RADRPT ---
Vent Rate: 83 bpm RR Interval: 0 msec WV Interval: 178 msec QRS Duration: 84 msec QT Interval: 406 msec QTC Interval: 477 msec P-R-T [place]: 0 - 6 - -22 degrees Normal sinus rhythm Low voltage QRS Septal infarct , age undetermined Abnormal ECG Electronically Signed By: Taye Maloney
[2018-07-28 19:45] VITALS: BP 125/58; PULSE 85; RESP 18
[2018-07-28] MEDS: ATORVASTATIN 40 MG TAB PO SCH (20:19)
[2018-07-29] MEDS: SOD CHLORIDE 0.9% 1,000 ML IV SCH ×2 (01:05→15:00)
[2018-07-29] MEDS: ACCU-CHEK XX SCH (01:05)
[2018-07-29 02:41] VITALS: BP 121/56; PULSE 83; RESP 18
[2018-07-29] MEDS: HYDROCODONE/APAP (5/325) TAB PO PRN ×4 (02:49→16:35)
[2018-07-29] MEDS: INSULIN ASPART [NOVOLOG] 3 ML PEN SC SCH ×3 (07:20→17:25)
--- NOTE | 2018-07-29 08:03 | CONS ---
Assessment/Plan Assessment/Plan Assessment/Plan (Daily) 1. Post op lumbar back surgery, doing well 2. DM with sugar control that is acceptable 3. BP controlled 4. Iron def noted, IV iron ordered yesterday Consultation Date/Type/Reason Admit Date/Time July 26, 2018 at 07:44 Initial Consult Date Date/Time of Note DATE: 07/29/18 TIME: 08:02 Detailed Summary Respiratory: No cough, No shortness of breath Cardiovascular: No chest pain Gastrointestinal: other (bloated) Genitourinary: no complaints Musculoskeletal: back pain (moderate back pain) Exam/Review of Systems Exam Vitals Vital Signs Date Temp Pulse Resp B/P (MAP) Pulse Ox O2 O2 Flow FiO2 Time Delivery Rate 07/29/18 98.2 83 18 121/56 93 02:41 (77) 07/28/18 Room Air 16:13 07/26/18 2.0 20:15 Intake and Output 07/28/18 07/28/18 07/29/18 1515:00 23:00 07:00 IntakeIntake Total 110 ml OutputOutput Total 20 ml 1205 ml BalanceBalance 110 ml -20 ml -1205 ml Neck: No jvd Respiratory: clear to auscultation Cardiovascular: regular rate and rhythm Gastrointestinal: soft Extremities: No edema, No tenderness Results Result Diagram: 07/29/18 0449 07/29/18 0449 Results 24hrs Laboratory Tests Test 07/28/18 08:27 07/28/18 12:53 07/28/18 18:04 07/29/18 04:49 Bedside Glucose 133 149 185 White Blood Count 10.7 Red Blood Count 3.50 L Hemoglobin 9.3 L Hematocrit 29.4 L Mean Corpuscular 84.0 Volume Mean Corpuscular 26.6 L Hemoglobin Mean Corpuscular 31.6 L Hemoglobin Concent Red Cell 13.2 Distribution Width Platelet Count 209 Mean Platelet Volume 10.3 Immature 0.700 H Granulocytes % Neutrophils % 66.4 Lymphocytes % 16.7 Monocytes % 14.0 H Eosinophils % 1.9 Basophils % 0.3 Nucleated Red Blood 0.0 Cells % Immature 0.070 H Granulocytes # Neutrophils # 7.1 Lymphocytes # 1.8 Monocytes # 1.5 H Eosinophils # 0.2 Basophils # 0.0 Nucleated Red Blood 0.0 Cells # Sodium Level 136 Potassium Level 3.8 Chloride Level 100 Carbon Dioxide Level 29 Anion Gap 7 Blood Urea Nitrogen 10 Creatinine 0.52 Est Glomerular Filtrat Rate mL/min Glucose Level 143 Calcium Level 8.7 Phosphorus Level 3.1 Magnesium Level 1.5 L Medications Medication Current Medications Acetaminophen/ Hydrocodone Bitart ([place] (5/325)) 1 tab Q4H PRN PO .PAIN 1-5 Last administered on 07/27/18at 17:49; Admin Dose 1 TAB; Start 07/26/18 at 15:30 Acetaminophen/ Hydrocodone Bitart ([place] (5/325)) 2 tab Q4H PRN PO .PAIN 6-10 Last administered on 07/29/18 06:50; Admin Dose 2 TAB; Start 07/26/18 at 15:30 Prochlorperazine (Compazine) 10 mg Q4H PRN PO NAUSEA/VOMITING; Start 07/26/18 at 15:30 Ondansetron HCl (Zofran Inj) 4 mg Q6H PRN IV NAUSEA/VOMITING; Start 07/26/18 at 15:30 Al Hydrox/Mg Hydrox/Simethicone (Mag-Al Plus) 15 ml Q4H PRN PO .CONSTIPATION; Start 07/26/18 at 15:30 Docusate Sodium (Colace) 100 mg BID PO Last administered on 07/28/18at 20:19; Admin Dose 100 MG; Start 07/27/18 at 09:00 Acetaminophen (Tylenol Tab) 650 mg Q4H PRN PO TEMP GREATER THAN 101F OR AGOSTO Last administered on 07/27/18 14:03; Admin Dose 650 MG; Start 07/26/18 at 15:30 IV Flush (NS 3 ml) 3 ml PER PROTOCOL IV ; Start 07/26/18 at 15:30 Naloxone HCl (Narcan) 0.2 mg Q2M PRN IV RR 8 BREATHS/MIN OR LESS; Start 07/26/18 at 15:30 Hydromorphone HCl (Dilaudid) 0.5 mg Q4H PRN IV SEVERE PAIN LEVEL 7-10 Last administered on 07/28/18at 10:25; Admin Dose 0.5 MG; Start 07/26/18 at 16:30 Sodium Chloride 1,000 ml @ 80 mls/hr [id number] IV Last administered on 07/27/18at 08:14; Admin Dose 100 MLS/HR; Start 07/26/18 at 17:00 Atorvastatin Calcium (Lipitor) 40 mg QHS PO Last administered on 07/28/18at 20:19; Admin Dose 40 MG; Start 07/26/18 at 21:00 Duloxetine HCl (Cymbalta) 60 mg DAILY PO Last administered on 07/28/18at 08:28; Admin Dose 60 MG; Start 07/27/18 at 09:00 Gabapentin (Neurontin) 300 mg QHS PRN PO PAIN; Start 07/26/18 at 17:00 Lisinopril (Zestril) 40 mg DAILY PO Last administered on 07/27/18at 09:21; Admin Dose 40 MG; Start 07/27/18 at 09:00 Metformin HCl (Glucophage) 1,000 mg WITH BREAKFAST DINNE PO Last administered on 07/28/18at 18:07; Admin Dose 1,000 MG; Start 07/26/18 at 17:55 Linagliptin (Tradjenta) 5 mg DAILY PO Last administered on 07/28/18at 08:29; Admin Dose 5 MG; Start 07/27/18 at 09:00 Diagnostic Test (Pha) (Accu-Chek) 1 ea 02 XX ; Start 07/27/18 at 02:00 Insulin Aspart (Novolog Insulin Pen) NOVOLOG *MILD* ALGORITHM AC MEALS SC Last administered on 07/27/18at 17:47; Admin Dose 1 UNIT; Start 07/26/18 at 17:30 Miscellaneous Information 1 ea NOTE XX ; Start 07/26/18 at 17:30 Glucose (Glutose) 15 gm Q15M PRN PO DECREASED GLUCOSE; Start 07/26/18 at 17:30 Glucose (Glutose) 22.5 gm Q15M PRN PO DECREASED GLUCOSE; Start 07/26/18 at 17:30 Dextrose (D50w Syringe) 25 ml Q15M PRN IV DECREASED GLUCOSE; Start 07/26/18 at 17:30 Dextrose (D50w Syringe) 50 ml Q15M PRN IV DECREASED GLUCOSE; Start 07/26/18 at 17:30 Glucagon (Glucagen) 1 mg Q15M PRN IM DECREASED GLUCOSE; Start 07/26/18 at 17:30 Glucose (Glutose) 15 gm Q15M PRN BUCCAL DECREASED GLUCOSE; Start 5/20/19 at 17:30 Ferric Sodium Gluconate Complex 125 mg/Sodium Chloride 110 ml @ 110 mls/hr DAILY@1300 IVPB Last administered on 07/28/18at 12:54; Admin Dose 110 MLS/HR; Start 07/28/18 at 13:00; Stop 08/01/18 at 13:59 JANNIE GRAY MD July 29, 2018 08:03
[2018-07-29 08:10] VITALS: BP 133/68; PULSE 88; RESP 18
[2018-07-29] MEDS: DOCUSATE SODIUM 100 MG CAP PO SCH (08:36)
[2018-07-29] MEDS: LISINOPRIL 20 MG TAB PO SCH (08:36)
[2018-07-29] MEDS: LINAGLIPTIN 5 MG TABLET PO SCH (08:36)
[2018-07-29] MEDS: metFORMIN 500 MG TAB PO SCH ×2 (08:36→17:55)
[2018-07-29] MEDS: DULOXETINE 30 MG CAP DR PO SCH (08:36)
[2018-07-29] MEDS ORDERED: MAGNESIUM SULFATE 3 GM in DEXTROSE 5% 100 ML IVPB ONE (09:30)
--- NOTE | 2018-07-29 11:57 | PDOCDIS ---
Discharge Instructions CONDITION [id number] Patient Condition: Sepga7g Good HOME CARE INSTRUCTIONS: [id number] Diet Instructions: [id number] Regular ACTIVITY: [id number] Activity Restrictions: Axzog3a Slowly Increase Activity Rest between Activity Avoid heavy lifting Do not Drive Do not operate Machinery Do not operate Power Tool Avoid Heavy Housework Jhdly2Ey Bathing Restrictions: [id number] Shower FOLLOW UP/APPOINTMENTS Follow-up Plan Follow-up w/ Dr. Cunningham in 2 weeks RIVAS CUNNINGHAM MD July 29, 2018 11:57
[2018-07-29] MEDS: SOD FERRIC GLUC COMPLX 125 MG in SOD CHLORIDE 0.9% 100 ML IVPB SCH (12:52)
== END 2018-07-29 17:20 | disposition home or self-care (01) | DRG 520 ==
LOC: EDBD 11:00 → REC 07-26 07:44 → MS1 07-26 17:33
PROVIDERS: ADMIT Orthopaedic Surgery; ATTEND Orthopaedic Surgery
PROC: 0SB20ZZ Excision of Lumbar Vertebral Disc, Open Approach (ICD-10-PCS; 2018-07-26)
PROC: 01NB0ZZ Release Lumbar Nerve, Open Approach (ICD-10-PCS; principal; 2018-07-26 11:00)
PROC: 4A11X4G Monitoring of Peripheral Nervous Electrical Activity, Intraoperative, External Approach (ICD-10-PCS; 2018-07-27)
DX: M48.062 Spinal stenosis, lumbar region with neurogenic claudication (principal); M51.16 Intervertebral disc disorders with radiculopathy, lumbar region; I10 Essential (primary) hypertension; E78.5 Hyperlipidemia, unspecified; E11.9 Type 2 diabetes mellitus without complications; F32.9 Major depressive disorder, single episode, unspecified; D50.9 Iron deficiency anemia, unspecified; I95.81 Postprocedural hypotension; Z79.84 Long term (current) use of oral hypoglycemic drugs
CPT/HCPCS: 72100; 80048; 82728; 82962; 83540; 83735; 84100; 85014; 85018; 85025; 86850; 86900; 86901; 87086; 88304; 93005; 97110; 97116; 97161; 97530; J0690; J1100; J1170; J1815; J1885; J2001; J2250; J2370; J2405; J2916; J3010; J3475; J7030; P9045